=== PATIENT | female | born 1965 | race Caucasian/White ===

== ENCOUNTER → 2020-07-19 10:20 | Outpatient (CLI) | payer BC, SELFPAY ==
--- NOTE | ~2020-07-19 | XR_ITS ---
XR abdomen/kub 1V 07/19/2020 10:41 Indication: Renal stones Procedure: KUB Comparison: No prior studies for comparison. Findings: There is a left internal ureteral stent. There are multiple stones in the left kidney and p roximal ureter. Bowel gas pattern is nonobstructive. Lung bases are unremarkable. No acute osseous ab normality. Impression: 1: Left renal and proximal ureteral stones with left internal ureteral stent in expected position. Reviewed, dictated and finalized at location A. COMMUNICATIONS LINE MECHANIC Impression: 1: Left renal and proximal ureteral stones with left internal ureteral stent in expected position.
--- NOTE | ~2020-07-19 | CT_ITS ---
EXAMINATION: CT abdomen pelvis wo con DATE: 07/19/2020 10:41 INDICATION: Renal stones TECHNIQUE: Computed tomography (CT) of the abdomen and pelvis was performed without intravenous contr ast. The dose-length product was 316.65 mGy-cm. Automated exposure control and iterative reconstructi on technique were employed. COMPARISON: CT dated 12/28/2018. FINDINGS: Lung bases are unremarkable. Heart size normal. No significant pleural or pericardial effus ion. No significant vascular abnormality. There are mildly prominent periaortic lymph nodes, likely r eactive. There is a left internal ureteral stent in expected position. There are multiple stones in t he lower pole of the left kidney. There are proximal left ureteral stones. The liver, spleen, pancreas, adrenal glands and right kidney are unremarkable. Nonobstructive bowel g as pattern. Normal appendix. There is a right adnexal mass measuring approximately 6.4 x 5.9 cm, poor ly defined due to lack of contrast. IMPRESSION: 1. Left renal and proximal ureteral stones with internal ureteral stent in expected position. 2: Poorly circumscribed right adnexal mass which has been present on examinations dating back to 03/17. Differential diagnosis includes endometrioma, peritoneal inclusion cyst and neoplasm includin g cystadenocarcinoma. Reviewed, dictated and finalized at location A. TION DIRECTOR IMPRESSION: 1. Left renal and proximal ureteral stones with internal ureteral stent in expe cted position. 2: Poorly circumscribed right adnexal mass which has been present on examinatio ns dating back to 03/29/2016. Differential diagnosis includes endometrioma, per itoneal inclusion cyst and neoplasm including cystadenocarcinoma.
== END ==
PROVIDERS: PCP Family Medicine; Visit Provider Urology
DX: N20.2 Calculus of kidney with calculus of ureter (principal)
CPT/HCPCS: 74018; 74176

== ENCOUNTER → 2020-08-08 00:10 | Outpatient (CLI) | payer BC, SELFPAY ==
[2020-08-08 19:33] LABS: SARS-CoV-2 RNA PCR Negative
== END ==
PROVIDERS: PCP Family Medicine; Visit Provider Urology
DX: Z01.812 Encounter for preprocedural laboratory examination (principal); Z20.822 Contact with and (suspected) exposure to COVID-19
CPT/HCPCS: C9803; U0003; U0005

== ENCOUNTER 2020-08-09 08:14 | Outpatient (CLI) | payer BC, SELFPAY ==
--- NOTE | 2020-08-09 08:30 | ECG_ITS ---
Measurements Intervals Fisher Rate: 59 P: 54 KS: 173 QRS: 38 QRSD: 90 T: 46 QT: 422 QTc: 420 Interpretive Statements SINUS BRADYCARDIA DELAYED PRECORDIAL R/S TRANSITION BORDERLINE ECG Electronically Signed On 08-09-2020 8:48:41 [employer]OBILE [employer]AIL[employer] by Andrea Rodrigues D.O.
[2020-08-09 08:48] LABS: INR 0.9; Prothrombin Time 12.2 Seconds (11.1-14.7)
[2020-08-09 08:49] LABS: Partial Thromboplastin Time 30.9 SECONDS (22.3-36.8)
== END 2020-08-09 08:15 | disposition home or self-care (01) ==
PROVIDERS: PCP Family Medicine; Visit Provider Urology
DX: Z01.812 Encounter for preprocedural laboratory examination (principal); Z96.0 Presence of urogenital implants; E78.5 Hyperlipidemia, unspecified; R94.31 Abnormal electrocardiogram [ECG] [EKG]
CPT/HCPCS: 36415; 85610; 85730; 93005

== ENCOUNTER 2020-08-11 01:53 | Day surgery (SDC) | payer BC, SELFPAY ==
[2020-08-08 09:50] VITALS: BMI 24.9
--- NOTE | ~2020-08-11 | XR_ITS ---
EXAMINATION: XR abdomen/kub 1V EXAM DATE: 08/11/2020 13:01 INDICATION: Lithotripsy. TECHNIQUE: Frontal projection of the upper abdomen, frontal projection lower abdomen/pelvis for inter pretation. Comparison is made to prior examination from 07/19/2020. FINDINGS: There is a left-sided double-J ureteral stent. The cephalad loop partially uncoiled, simil ar appearance to prior study. Multiple stone fragments within left renal pelvis, calyces. Nonobstruct gabbie bowel gas pattern. There is no organomegaly. There are mild bony degenerative changes. IMPRESSION: Left renal pelvic, calyceal stone fragments. Reviewed, dictated and finalized at location B. FORM STAPLER
[2020-08-11] MEDS: LACTATED RINGERS 1,000 ML 30 ML IV CONT (14:17)
--- NOTE | 2020-08-11 14:18 | WPDANESEPPF ---
Anes - Initial Pre Proc Eval Procedure: Operation Date: 08/11/20 15:15 Proposed Procedures p Cystoscopy, Left Retrograde Pyelogram, Left Stent Exchange, - Khurram Castellanos MD s Possible Extracorporeal Shock Wave Lithotripsy of Stent - Khurram Castellanos MD Date/Time: 08/11/20 14:18 Surgeon: Khurram Castellanos MD Pre Op Diagnosis: retained left ureteral stent Patient Data Age: 54 Gender: F Height: 5 ft 5 in Weight: 68 kg Allergies Allergy/AdvReac Type Severity Reaction Status Date / Time No Known Allergies Allergy Verified 08/11/20 14:07 Home Medications Medication Instructions Recorded Confirmed Type pantoprazole 40 mg tablet,delayed 40 mg PO QAM #30 tablet 01/17/20 08/11/20 Rx release escitalopram oxalate 20 mg tablet See Rx Instructions .ROUTE 06/13/20 08/11/20 Rx .COMPLEX #30 tablet atorvastatin 10 mg tablet 10 mg PO DAILY #90 tablet 07/14/20 08/11/20 Rx Patient hx anesthesia problems: none Family hx anesthesia problems: none PMFSH Past Medical History Medical History Anxiety Depression HLD (hyperlipidemia) Family History Family History Other Depression Family history of elevated blood lipids Family history of migraine headaches Hypertension Social History Social History Smoking packs per day: 0.5 Smoking cigarettes per day: 10.0 Years smoked: 35 Smoking pack-years: 17.50 Smoking status: Current every day smoker Tobacco type: cigarettes Second hand tobacco smoke exposure: Yes Alcohol intake: never Substance use: former Living arrangements: with family Gender identity (if verbalized by the patient): Female Spiritual care concerns: No Anes - Eval Final PreProcedure Day of Procedure 08/11/20 14:18 Patient weight: normal Heart: regular rate and rhythm Lungs: clear to auscultation Airway: Mallampati scale class II Neurological: alert and oriented Last oral intake: >/= 8 hours ASA classification: III Emergent: no Anesthetic plan: proceed Anesthesia type and monitoring: general LMA and standard monitoring Informed Consent: The patient's anesthetic plan and its attendant risks and benefits were discussed with the patient/family/POA. Questions were solicited and answers provided to the satisfaction of the patient/family/POA.
[2020-08-11 14:20] VITALS: BP 119/72; PULSE 74; RESP 16; TEMP 36.3; O2SAT 98; BMI 25.0
--- NOTE | 2020-08-11 14:46 | WPDHPUPDATE1 ---
History and Physical Update Update Date/Time: 08/11/20 14:46 History and Physical has been reviewed, including an updated exam of the patient. There are NO changes in the patient's condition. Risks, benefits, and alternatives have been discussed and questions answered. Patient agrees to proceed with procedure. Proceed with cystoscopy left retrograde pyelogram left stent exchange possible lithotripsy of ureteral stent
[2020-08-11] MEDS: ceFAZolin 2 GM/D5W 50 ML 2 GM/50 ML BAG IVPB (15:13)
--- NOTE | 2020-08-11 15:42 | PM.PROC ---
Procedure Note - Detailed Date of procedure: 08/11/20 Pre-op diagnosis: retained left ureteral stent Post-op diagnosis: same Procedure performed: Cystoscopy, left ureteral stent exchange (removal and replacement) , lithotripsy of ureteral stent with proximal ureteral calculus Description of procedure: Patient is taken the operative suite correctly identified. Once anesthesia was obtained she was placed in the frog-leg position prepped draped usual sterile fashion. Sixteen [place] flexible scope was inserted in the bladder. The catheter by a stent is encrusted. She also has a calcification adjacent to the stent proximally. We attempted the retrieve the stent but had some difficulty with pulling it. We then gave approximately 7-800 shocks to the proximal stone and stent. We were then able to retrieve the stent. Guidewire was passed into the orifice. A 4.8 [place] contour stent was then placed with the proximal end coiled in the renal pelvis distal in the bladder. Patient was taken recovery room stable condition. She will then undergo a percutaneous nephrolithotomy by Dr. Trinh at a later point time. Anesthesia: GLMA Surgeon: Khurram Castellanos MD Drains: Yes Packing: No Pathology: none sent Complications: No immediate complications Condition: stable Disposition: PACU
--- NOTE | 2020-08-11 15:43 | SUR.OPER ---
left ureteral stent 4.8FR Exp 2023-05-19, Lot [id number]
[2020-08-11 15:48] VITALS: BP 120/65; PULSE 51; RESP 11; TEMP 36.9; O2SAT 99
[2020-08-11 16:03] VITALS: BP 122/70; PULSE 58; RESP 14; O2SAT 97
[2020-08-11 16:17] VITALS: BP 137/73; PULSE 59; RESP 15; TEMP 36.8; O2SAT 98
[2020-08-11 16:24] VITALS: BP 135/80; PULSE 66; RESP 14
[2020-08-11 16:54] VITALS: BP 140/75; PULSE 62; RESP 14
== END 2020-08-11 17:00 | disposition home or self-care (01) ==
PROVIDERS: PCP Family Medicine; Visit Provider Urology
PROC: (CPT 52352; principal; 2020-08-11 15:15)
PROC: (CPT 50590; 2020-08-11 15:15)
DX: T83.192A Other mechanical complication of indwelling ureteral stent, initial encounter (principal); Y83.8 Other surgical procedures as the cause of abnormal reaction of the patient, or of later complication, without mention of misadventure at the time of the procedure; N20.1 Calculus of ureter; E78.5 Hyperlipidemia, unspecified; F41.8 Other specified anxiety disorders; F17.210 Nicotine dependence, cigarettes, uncomplicated
CPT/HCPCS: 52332; 50590; 36415; 74018; 85610; 85730; 93005; A9270; C1769; C2617; C9803; J0690; J2250; J2405; J2704; J3010; J7030; J7120; U0003; U0005

== ENCOUNTER 2022-04-03 09:34 | Outpatient (CLI) | payer OTHER, SELFPAY ==
[2022-04-03 11:39] LABS: Hemoglobin A1C 5.3 % (<5.7)
[2022-04-03 12:43] LABS: Free T4 Free Thyroxine Reflex 1.14 ng/dL (0.78-2.19)
[2022-04-03 14:36] LABS: Total Triiodothyronine (T3) 1.29 NG/ML (0.97-1.69)
[2022-04-09 08:51] LABS: Gliadin AB, IgG <1.0; TTG IGA AB <1.0
== END 2022-04-03 09:35 | disposition home or self-care (01) ==
LOC: ANHLAB 09:36
PROVIDERS: PCP Family Medicine; Visit Provider Nurse Practitioner
DX: K52.9 Noninfective gastroenteritis and colitis, unspecified (principal); Z80.0 Family history of malignant neoplasm of digestive organs; Z72.0 Tobacco use
CPT/HCPCS: 36415; 83036; 83516; 84439; 84443; 84480

== ENCOUNTER 2022-04-04 10:28 | Outpatient (CLI) | payer OTHER, SELFPAY ==
[2022-04-04 13:52] LABS: Toxigenic C. Diff NEGATIVE (NEGATIVE)
[2022-04-12 07:07] LABS: Calprotectin, Stool <5 mcg/g
== END 2022-04-04 10:29 | disposition home or self-care (01) ==
PROVIDERS: PCP Family Medicine; Visit Provider Nurse Practitioner
DX: K52.9 Noninfective gastroenteritis and colitis, unspecified (principal); Z80.0 Family history of malignant neoplasm of digestive organs; Z72.0 Tobacco use
CPT/HCPCS: 83993; 87045; 87077; 87177; 87186; 87209; 87269; 87427; 87493

== ENCOUNTER 2022-04-16 03:10 | Day surgery (SDC) | payer OTHER, SELFPAY ==
[2022-04-10 12:48] VITALS: BMI 21.6
[2022-04-16 11:05] VITALS: BP 130/79; PULSE 62; RESP 18; TEMP 36.1; O2SAT 100; BMI 20.7
[2022-04-16] MEDS: LACTATED RINGERS 1,000 ML 150 ML IV CONT (11:06)
--- NOTE | 2022-04-16 11:32 | PM.HPGS ---
History of Present Illness History of Present Illness Consent: Risks, benefits, and alternatives have been discussed and questions answered. Patient agrees to proceed with procedure. Chief complaint: Wt Loss, Diarrhea, Fam Hx of Colon ca Narrative: Paula Andrade is a 56 year old female Referred for investigation of severe diarrhea. For 1 and half years she has had diarrhea daily. Along with this she has lost about 25 lb. Stool testing has been negative for infectious agents including Giardia, C diff, and others. Serology was negative for celiac disease. Review of Systems Review of Systems: All systems reviewed & are unremarkable except as noted in HPI and below PMFSH Past Medical History Medical History Anxiety Chronic diarrhea Depression Family hx of colon cancer Fecal incontinence Fecal urgency HLD (hyperlipidemia) Surgical History Surgical History Hx of cystoscopy Family History Family History Grandparent Carcinoma of colon Other Depression Family history of elevated blood lipids Family history of migraine headaches Hypertension Social History Social History Smoking packs per day: 1 Smoking cigarettes per day: 20.0 Years smoked: 40 Smoking pack-years: 40.00 Smoking status: Current every day smoker Tobacco type: cigarettes Second hand tobacco smoke exposure: Yes Alcohol intake: current Alcohol use details: rarely Substance use: current Substance use type: marijuana Other substance usage details: smokes marijuana daily for back pain relief Has the Lack of Transportation Kept You From Medical Appointments or From Getting Medications?: No Within the Past 12 Months, Were You Worried Whether Your Food Would Run Out Before You Got Money to Buy More?: Never True What is Your Housing Situation Today?: I Have Housing Are You Worried That in the Next 2 Months, You May Not Have Your Own Housing to Live In?: No Do You Have Trouble Paying Your Heating Or Electricity Bill?: No Do You Have Trouble Paying For Medicines?: No Are You Currently Unemployed and Looking for Work?: No Highest Level of Education Completed: Associate Degree Do You Have Trouble With Childcare or the Care of a Family Member?: No Living arrangements: with family Gender identity (if verbalized by the patient): Female Spiritual care concerns: No Meds Home Medications and Allergies Home Medications Medication Instructions Recorded Confirmed Type escitalopram oxalate 20 mg tablet See Rx Instructions .Route 03/24/22 04/10/22 Rx .COMPLEX #30 tabs apple cider vinegar 600 mg capsule 600 mg PO DAILY 03/27/22 04/10/22 History cetirizine 10 mg tablet (Zyrtec) 10 mg PO BID PRN Allergy Symptoms 03/27/22 04/10/22 History ciprofloxacin HCl 500 mg tablet 500 mg PO Q12H 10 days #20 tabs 04/09/22 04/10/22 Rx (Cipro) Allergies Allergy/AdvReac Type Severity Reaction Status Date / Time No Known Allergies Allergy Verified 04/16/22 11:04 Vital Signs Vital Signs - 24 hr 04/16/22 11:05 Temperature 36.1 C L Pulse Rate 62 Respiratory Rate 18 Blood Pressure 130/79 Pulse Oximetry 100 Oxygen Delivery Room Air Exam Const: General: alert Orientation/consciousness: patient oriented x3 Resp: Auscultation: clear to auscultation bilaterally Cardio: Rhythm: regular rhythm GI: GI Palp: Yes Soft to palpation and No Tenderness to palpation present (GI) Neuro: General: patient oriented x3 Assessment and Plan Assessment and plan (1) Chronic diarrhea: Code(s): K52.9 - Noninfective gastroenteritis and colitis, unspecified Status: Acute Assessment and Plan: Colonoscopy with possible biopsy or polypectomy or cautery or injection of substance
--- NOTE | 2022-04-16 11:33 | WPDANESEPPF ---
Anes - Initial Pre Proc Eval Procedure: Operation Date: 04/16/22 12:30 Proposed Procedures p Colonoscopy - Tim Marin MD Date/Time: 04/16/22 11:33 Surgeon: Tim Marin MD Pre Op Diagnosis: Wt Loss, Diarrhea, Fam Hx of Colon ca Patient Data Age: 56 Gender: F Height: 1.65 m Weight: 56.5 kg Last Vital Signs Temp 36.1 C L 04/16/22 11:05 Pulse 62 04/16/22 11:05 Resp 18 04/16/22 11:05 BP 130/79 04/16/22 11:05 Pulse Ox 100 04/16/22 11:05 O2 Del Method Room Air 04/16/22 11:05 Allergies Allergy/AdvReac Type Severity Reaction Status Date / Time No Known Allergies Allergy Verified 04/16/22 11:04 Home Medications Medication Instructions Recorded Confirmed Type escitalopram oxalate 20 mg tablet See Rx Instructions .Route 03/24/22 04/10/22 Rx .COMPLEX #30 tabs apple cider vinegar 600 mg capsule 600 mg PO DAILY 03/27/22 04/10/22 History cetirizine 10 mg tablet (Zyrtec) 10 mg PO BID PRN Allergy Symptoms 03/27/22 04/10/22 History ciprofloxacin HCl 500 mg tablet 500 mg PO Q12H 10 days #20 tabs 04/09/22 04/10/22 Rx (Cipro) Patient hx anesthesia problems: none Family hx anesthesia problems: none Results Review: All pre-operative results and documents have been reviewed as part of the pre-operative evaluation. [facility] Past Medical History Medical History Anxiety Chronic diarrhea Depression Family hx of colon cancer Fecal incontinence Fecal urgency HLD (hyperlipidemia) Surgical History Surgical History (Updated 04/16/22 @ 11:34 by Philippe Abebe MD) Hx of cystoscopy Family History Family History Grandparent Carcinoma of colon Other Depression Family history of elevated blood lipids Family history of migraine headaches Hypertension Social History Social History Smoking packs per day: 1 Smoking cigarettes per day: 20.0 Years smoked: 40 Smoking pack-years: 40.00 Smoking status: Current every day smoker Tobacco type: cigarettes Second hand tobacco smoke exposure: Yes Alcohol intake: current Alcohol use details: rarely Substance use: current Substance use type: marijuana Other substance usage details: smokes marijuana daily for back pain relief Has the Lack of Transportation Kept You From Medical Appointments or From Getting Medications?: No Within the Past 12 Months, Were You Worried Whether Your Food Would Run Out Before You Got Money to Buy More?: Never True What is Your Housing Situation Today?: I Have Housing Are You Worried That in the Next 2 Months, You May Not Have Your Own Housing to Live In?: No Do You Have Trouble Paying Your Heating Or Electricity Bill?: No Do You Have Trouble Paying For Medicines?: No Are You Currently Unemployed and Looking for Work?: No Highest Level of Education Completed: Associate Degree Do You Have Trouble With Childcare or the Care of a Family Member?: No Living arrangements: with family Gender identity (if verbalized by the patient): Female Spiritual care concerns: No Anes - Eval Final PreProcedure Day of Procedure 04/16/22 11:33 Patient weight: normal Heart: regular rate and rhythm Lungs: clear to auscultation Airway: Mallampati scale class II Last oral intake: >/= 8 hours Emergent: no Anesthetic plan: proceed Anesthesia type and monitoring: general GIVS and standard monitoring Results Review: All pre-operative results and documents have been reviewed as part of the pre-operative evaluation. Informed Consent: The patient's anesthetic plan and its attendant risks and benefits were discussed with the patient/family/POA. Questions were solicited and answers provided to the satisfaction of the patient/family/POA.
[2022-04-16 12:44] VITALS: BP 119/71; PULSE 58; RESP 19; O2SAT 100
[2022-04-16 12:54] VITALS: BP 126/74; PULSE 58; RESP 22; O2SAT 100
[2022-04-16 13:04] VITALS: BP 132/72; PULSE 54; RESP 20; O2SAT 100
== END 2022-04-16 13:10 | disposition home or self-care (01) ==
PROVIDERS: PCP Family Medicine; Visit Provider Internal Medicine Gastroenterology
PROC: 0DJD8ZZ Inspection of Lower Intestinal Tract, Via Natural or Artificial Opening Endoscopic (ICD-10-PCS; CPT 45378; principal; 2022-04-16 12:30)
DX: R19.7 Diarrhea, unspecified (principal); D12.8 Benign neoplasm of rectum; D12.5 Benign neoplasm of sigmoid colon; K62.1 Rectal polyp; K63.5 Polyp of colon; K64.8 Other hemorrhoids; Z80.0 Family history of malignant neoplasm of digestive organs; F41.9 Anxiety disorder, unspecified; F32.A Depression, unspecified; F17.210 Nicotine dependence, cigarettes, uncomplicated; F12.90 Cannabis use, unspecified, uncomplicated
CPT/HCPCS: 45385; 45380; 88305; J2704; J7120

== ENCOUNTER 2023-07-19 12:32 | Outpatient (CLI) | payer OTHER, SELFPAY ==
[2023-07-19 13:47] LABS: Toxigenic C. Diff NEGATIVE (NEGATIVE)
[2023-07-28 03:28] LABS: Calprotectin, Stool <5 mcg/g; Pancreatic Elastase, Stool >500 mcg/g
== END 2023-07-19 12:33 | disposition home or self-care (01) ==
LOC: ANHLAB 12:34
PROVIDERS: PCP Family Medicine; Visit Provider Nurse Practitioner
DX: K52.9 Noninfective gastroenteritis and colitis, unspecified (principal)
CPT/HCPCS: 82653; 83993; 87045; 87269; 87427; 87449; 87493